=== PATIENT | male | born 1990 | race African-American/Black ===

== ENCOUNTER 2020-09-21 22:21 | Emergency (ER) | payer OTHER ==
[~2020-09-21] VITALS: Ht 167.6 cm; Wt 68.0 kg
[~2020-09-21 22:21] MED LIST: COLACE100 MG PO; HYDROCODON-ACE1 EAC7 PO; MIRALAX17 GM PO; PROMETHAZINE HC25 M1 PO; PROTONIX40 M1 PO
[2020-09-21 22:31] VITALS: BP 120/45
[2020-09-21] MEDS ORDERED: KEFLEX500 M1 PO (23:04)
== END 2020-09-21 23:26 | disposition home or self-care (01) ==
LOC: ER 22:21
DX: S61.412A Laceration without foreign body of left hand, initial encounter (principal); Z79.899 Other long term (current) drug therapy; W26.0XXA Contact with knife, initial encounter; Y93.89 Activity, other specified; Y92.89 Other specified places as the place of occurrence of the external cause; Y99.8 Other external cause status

== ENCOUNTER 2020-10-06 13:18 | Emergency (ER) | payer OTHER ==
[~2020-10-06] VITALS: Ht 167.6 cm; Wt 70.3 kg
[~2020-10-06 13:18] MED LIST changes: +KEFLEX500 M1 PO
[2020-10-06 14:54] VITALS: BP 130/79
== END 2020-10-06 14:55 | disposition home or self-care (01) ==
LOC: ER 13:18
DX: S61.412D Laceration without foreign body of left hand, subsequent encounter (principal); Z79.899 Other long term (current) drug therapy; X58.XXXD Exposure to other specified factors, subsequent encounter

== ENCOUNTER 2021-08-05 19:11 | Emergency (ER) | payer OTHER ==
[~2021-08-05] VITALS: Ht 165.1 cm; Wt 67.6 kg
[2021-08-05] MEDS ORDERED: NAPROSYN500 M1 PO (21:13)
[2021-08-05 21:28] VITALS: BP 150/80
== END 2021-08-05 21:29 | disposition home or self-care (01) ==
LOC: ER 19:11
DX: K08.89 Other specified disorders of teeth and supporting structures (principal); G89.29 Other chronic pain